=== PATIENT | female | born 1960 | race Two or more races ===

== ENCOUNTER → 2024-11-01 | Outpatient (CLI) | payer MEDICAID, SELFPAY ==
--- NOTE | 2024-11-01 16:00 | XR_ITS ---
Examination: MRI lumbar spine without contrast Date and time of exam: November 01, 2024 1643 hours INDICATIONS: Low back pain radiating down both legs numbness and paresthesias in the legs and feet years, worse the last year Technique: Multiple MRI axial and sagittal sections lumbar spine. Sagittal T2-weighted images, TR 3500, TE 118 T1 weighted transverse sections, TR 688 T8.5, T2-weighted sagittal sections T1 weighted sagittal sections TR 621, TE 30 T2 axial sections, TR 4, 190, TE 84. 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, the largest upper pole left kidney 3 cm Adequate alignment lumbar vertebral bodies on the lateral view No lumbar fracture Diffuse lumbar disc desiccation Moderate to advanced disc narrowing L5-S1 No spondylolisthesis L5-S1 5 mm central paracentral disc bulge displacing the left S1 nerve root, extending to the foraminal regions, 8 mm on the left with mild left L5 ganglionic compression, 10 mm on the right, mild right L5 ganglionic compression L4-L5 3 mm central lumbar disc bulge L2-L3 no disc protrusion L2-L3 no disc protrusion L1-L2 no disc protrusion IMPRESSION: L5-S1 5 mm central disc bulge displacing the left S1 nerve root, 8 mm left foraminal disc bulge mild left L5 ganglionic compression 10 mm right foraminal disc bulge mild right L5 ganglionic compression L4-L5 3 mm central lumbar disc bulge
== END | disposition home or self-care (01) ==
LOC: SMRI 11-07 08:29
PROVIDERS: PCP Physician Assistant Medical; Referring Provider Physician Assistant Medical; Visit Provider Physician Assistant Medical
DX: M51.369 Other intervertebral disc degeneration, lumbar region without mention of lumbar back pain or lower extremity pain (principal); M51.379 Other intervertebral disc degeneration, lumbosacral region without mention of lumbar back pain or lower extremity pain; G95.20 Unspecified cord compression
CPT/HCPCS: 72148

== ENCOUNTER → 2025-01-27 | Outpatient (CLI) | payer MEDICAID, SELFPAY ==
--- NOTE | 2025-01-27 08:31 | XR_ITS ---
Examination: Lumbar spine, 6 Technique: Standing lateral, standing lateral flexion, standing lateral extension, bilateral obliques 5 views, coned lateral lower lumbar spine 6 views Exam date and time: January 27, 2025 at 1005 hours INDICATIONS: Low back pain 5 years radiating down the legs Findings: Adequate alignment lumbar vertebral bodies Advanced degenerative disc disease L5-S1 Adequate range of motion between flexion and extension Mild lumbar spondylosis IMPRESSION: Advanced degenerative disc disease L5-S1
== END | disposition home or self-care (01) ==
LOC: SDIM 08:15
PROVIDERS: PCP Physician Assistant Medical; Referring Provider Nurse Practitioner; Visit Provider Nurse Practitioner
DX: M51.379 Other intervertebral disc degeneration, lumbosacral region without mention of lumbar back pain or lower extremity pain (principal)
CPT/HCPCS: 72110

== ENCOUNTER 2025-04-21 09:30 | Outpatient (RCR) | payer MEDICAID, SELFPAY ==
--- NOTE | 2025-04-02 11:16 | PT.OIERPT ---
PT OP Initial Eval Patient Information Outpatient Physical Therapy Treatment Date: 04/02/25 Visit Reasons: back pain Medical Diagnosis: M54.42 Treatment Dx #1: Back Pain Start of Care: 04/02/25 Date of Onset: 5 years ago Smoking Status Smoking Status: Never smoker Initial Assessment Subjective: Pt is a 64 y/o female reports of chronic back pain (05/01) with intermittent numbness L>R ~ 5 years ago. Pt's most recent MRI showed 2 disc bulge L4-L5 3 mm and L5-S1 8/10 mm. Pt has limitation with sitting, standing, chores, self care, lifting, cooking, cleaning, and performing recreational activities. Pt has seen neurosurgeon and does not recommend surgery at this time. Objective: L/S AROM: all motions are 75% towards end range with pain Hip PROM: all motions are WFL except IR bilaterally Hip MMTs: grossly 3/5 Special Test (+) SLR (+) slump Assessment: Pt demonstrate back pain with mobility deficits consistent with MRI findings leading to difficulty with ADLs. Pt will attempt physical therapy if pain persist Pt will be refer back to provider for further consultation. 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
--- NOTE | 2025-04-08 11:22 | PT.ODAYNRPT ---
PT Outpatient Daily Note OP Daily Note Outpatient Physical Therapy Treatment Date: 04/08/25 Visit Reasons: back pain Subjective: Pt's back is still stiff with pain down the legs. Objective: Please see flow chart for list of ther ex performed Assessment: unable to perform SLR nerve floss due to L LE weakness modified to flossing only at the ankle with DF/PF AROM. Pt tolerate all other exercises Plan: Continue with PT Length of Time (minutes) of Treatment: 30 Minutes Procedure Charges Therapeutic Exercise 30 minutes: Yes
--- NOTE | 2025-04-11 15:43 | PT.ODAYNRPT ---
PT Outpatient Daily Note OP Daily Note Outpatient Physical Therapy Treatment Date: 04/11/25 Visit Reasons: back pain Subjective: Pt c/o back pain , says it is worse with prolonged standing and when getting up from sitting. Objective: Please see flow sheet for ther ex list. Assessment: Pt demonstrate poor tolerance laying in supine. Plan: Continue with pOC. Length of Time (minutes) of Treatment: 30 Minutes Procedure Charges Therapeutic Exercise 30 minutes: Yes
--- NOTE | 2025-04-21 10:36 | PT.ODAYNRPT ---
PT Outpatient Daily Note OP Daily Note Outpatient Physical Therapy Treatment Date: 04/21/25 Visit Reasons: back pain Subjective: Pt reports LBP is about the same. Objective: Please see flow sheet for ther ex list. Assessment: Verbal cues and tactile cues for pt to perform posterior pelvic tilt exercise with desired motion. Plan: Continue with poC. Length of Time (minutes) of Treatment: 30 Minutes Procedure Charges Therapeutic Exercise 30 minutes: Yes
== END 2025-04-21 23:59 | disposition home or self-care (01) ==
LOC: CPTX 09:30
PROVIDERS: PCP Physician Assistant Medical; Referring Provider Physician Assistant Medical; Visit Provider Physician Assistant Medical
DX: M51.16 Intervertebral disc disorders with radiculopathy, lumbar region (principal)
CPT/HCPCS: 97110; 97162

== ENCOUNTER 2025-05-22 08:30 | Outpatient (RCR) | payer MEDICAID, SELFPAY ==
--- NOTE | 2025-04-23 11:18 | PT.ODAYNRPT ---
PT Outpatient Daily Note OP Daily Note Outpatient Physical Therapy Treatment Date: 04/23/25 Visit Reasons: Back pain Subjective: No changes to report, pt continues to have LBP. Objective: Please see flow sheet for ther ex list. Assessment: Pt instructed on repeated lumbar extension in standing exercise, able to perform with desired motion encouraged to perform for HEP. Plan: Continue with poC. Length of Time (minutes) of Treatment: 30 Minutes Procedure Charges Therapeutic Exercise 30 minutes: Yes
--- NOTE | 2025-05-07 10:49 | PT.ODAYNRPT ---
PT Outpatient Daily Note OP Daily Note Outpatient Physical Therapy Treatment Date: 05/07/25 Visit Reasons: Back pain Subjective: Pt reports back is doing a little better, has been compliant with HEP. Objective: Please see flow sheet for ther ex list. Assessment: Pt able to replicate lumbar extension exercise iwht good technique indicating compliance with HEP. Plan: Continue with pOC. Length of Time (minutes) of Treatment: 30 Minutes Procedure Charges Therapeutic Exercise 30 minutes: Yes
--- NOTE | 2025-05-12 13:56 | PT.ODAYNRPT ---
PT Outpatient Daily Note OP Daily Note Outpatient Physical Therapy Treatment Date: 05/12/25 Visit Reasons: Back pain Subjective: Pt's back is feeling okay. Minimal changes with overall pain Objective: Please see flow chart for list of ther ex perfomed Assessment: progress patient to seated nerve floss with good tolerance. Minimal change in pain reported post PT session. Plan: Continue with PT Length of Time (minutes) of Treatment: 30 Minutes Procedure Charges Therapeutic Exercise 30 minutes: Yes
--- NOTE | 2025-05-19 15:58 | PT.ODAYNRPT ---
PT Outpatient Daily Note OP Daily Note Outpatient Physical Therapy Treatment Date: 05/19/25 Visit Reasons: Back pain Subjective: Pt's back is better. 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 Objective: Please see flow chart for list of ther ex perfomed Assessment: progressing with core exercises with minimal pain reported Plan: Continue with PT Length of Time (minutes) of Treatment: 30 Minutes Procedure Charges Therapeutic Exercise 30 minutes: Yes
--- NOTE | 2025-05-22 08:57 | PT.ODAYNRPT ---
PT Outpatient Daily Note OP Daily Note Outpatient Physical Therapy Treatment Date: 05/22/25 Visit Reasons: Back pain Subjective: Pt's back feels better. No new concerns reported. Objective: Please see flow chart for list of ther ex performed Assessment: added more core exercises with good tolerance Plan: Continue with PT Length of Time (minutes) of Treatment: 30 Minutes Procedure Charges Therapeutic Exercise 30 minutes: Yes
== END 2025-05-22 23:59 | disposition home or self-care (01) ==
LOC: CPTX 08:30
PROVIDERS: PCP Physician Assistant Medical; Referring Provider Physician Assistant Medical; Visit Provider Physician Assistant Medical
DX: M51.16 Intervertebral disc disorders with radiculopathy, lumbar region (principal)
CPT/HCPCS: 97110

== ENCOUNTER 2025-06-11 09:30 | Outpatient (RCR) | payer MEDICAID, SELFPAY ==
--- NOTE | 2025-05-28 10:10 | PT.ODAYNRPT ---
PT Outpatient Daily Note OP Daily Note Outpatient Physical Therapy Treatment Date: 05/28/25 Visit Reasons: Back pain Subjective: Pt reports progress with back symptoms. Objective: Please see flow sheet for ther ex list. Assessment: Pt demonstrates decrease pain with interventions indicating progress. Plan: Continue withPOC. Pt has 2 visits remaining. Length of Time (minutes) of Treatment: 30 Minutes Procedure Charges Therapeutic Exercise 30 minutes: Yes
--- NOTE | 2025-06-06 11:14 | PT.ODAYNRPT ---
PT Outpatient Daily Note OP Daily Note Outpatient Physical Therapy Treatment Date: 06/06/25 Visit Reasons: Back pain Subjective: Pt's back is good and does not have any concerns. Objective: Please see flow chart for list of ther ex performed Assessment: progressing well with core and hip strengthening exercises with minimal reported pain Plan: Continue with PT Length of Time (minutes) of Treatment: 30 Minutes Procedure Charges Therapeutic Exercise 30 minutes: Yes
--- NOTE | 2025-06-11 11:48 | PT.ODS1RPT ---
PT OP Progress/Discharge Note Date of Service: 06/11/25 Progress Note/DC Note Progress Note/Discharge Note: DC Note Patient Information Visit Reasons: Back pain Medical Diagnosis: M54.42 Treatment Dx #1: Back Pain Service Discharge Date: 06/11/25 Status Subjective: Pt's back feels much better. Pt has been able to walk, stand, perform chores, recreational activities, and ADLs with less limitation. At this time Pt feels comfortable being release from care with exercises to continue at home. Objective: L/S AROM: all motions are WNL Hip PROM: all motions are WNL Hip MMTs: grossly 4-/5 Assessment: Pt demonstrate functional L/S mobility and strength allowing her to resume ADLs, ambulate, and perform recreational activities with less limitation. Pt will no longer benefit from physical therapy due to meeting all set goals. Pt was instructed on HEP last session and educated to continue exercises to maintain overall mobility. Pt performed all exercises safely, thank you for your referrals. Plan: D/C home with HEP and follow up with MD [facility] Procedure Charges Therapeutic Exercise 30 minutes: Yes
== END 2025-06-22 23:59 | disposition home or self-care (01) ==
LOC: CPTX 09:30
PROVIDERS: PCP Physician Assistant Medical; Referring Provider Physician Assistant Medical; Visit Provider Physician Assistant Medical
DX: M54.42 Lumbago with sciatica, left side (principal); M51.360 Other intervertebral disc degeneration, lumbar region with discogenic back pain only; G89.29 Other chronic pain
CPT/HCPCS: 97110